=== PATIENT | female | born 1945 | race Caucasian/White ===

== ENCOUNTER → 2021-12-13 11:05 | Outpatient (BNVA) | payer MEDICARE, SELFPAY | PROVIDERS: PCP Nurse Practitioner Family; Visit Provider Nurse Practitioner Family | DX: M79.672 Pain in left foot (principal) | CPT/HCPCS: 73630 ==

== ENCOUNTER → 2023-10-22 13:44 | Outpatient (BNVA) | payer MEDICARE, SELFPAY | PROVIDERS: PCP Nurse Practitioner Family; Visit Provider Nurse Practitioner Family | DX: D48.5 Neoplasm of uncertain behavior of skin (principal); L57.0 Actinic keratosis; L82.1 Other seborrheic keratosis; Z85.828 Personal history of other malignant neoplasm of skin | CPT/HCPCS: 11102; 17000; 99203 ==

== ENCOUNTER 2024-12-10 12:48 | Outpatient (CLI) | payer MEDICARE, SELFPAY ==
--- NOTE | 2024-12-10 12:58 | XR_ITS ---
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 Normal heart size. Bilateral calcified granulomatous disease. There is flattening of the hemidiaphragms. No acute pulmonary parenchymal or pleural abnormality. Minimal degenerative spondylosis in the thoracic spine for age. 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 XR/XR chest 2V* [id number] IMPRESSION: Hyperexpansion with no acute pulmonary parenchymal or pleural abnormality.
== END 2024-12-10 12:49 | disposition home or self-care (01) ==
PROVIDERS: PCP Nurse Practitioner Family
DX: R05.3 Chronic cough (principal); M94.0 Chondrocostal junction syndrome [Tietze]; I77.810 Thoracic aortic ectasia; D71 Functional disorders of polymorphonuclear neutrophils; R93.89 Abnormal findings on diagnostic imaging of other specified body structures; M47.894 Other spondylosis, thoracic region; M19.012 Primary osteoarthritis, left shoulder; M19.011 Primary osteoarthritis, right shoulder
CPT/HCPCS: 71046

== ENCOUNTER 2025-02-24 06:39 | Outpatient (CLI) | payer MEDICARE, SELFPAY ==
--- NOTE | 2025-02-24 07:00 | USCV_ITS ---
Camelia Echeverria Age: 79 Gender: F : 1945 Exam Date: 02/24/2025 07:12 Ordering Phys: Brigida Man Technologist: Flaquito Camargo [place] [facility] [place]: thoracic aorta ectasia BP: 124 / 86 HR: 77 Rhythm: Sinus Technical Quality: Adequate MEASUREMENTS (Male / Female) Normal Values 2D ECHO LV Diastolic Diameter PLAX 3.8 cm 4.2 - 5.9 / 3.9 - 5.3 cm IVS Diastolic Thickness 1.1 cm 0.6 - 1.0 / 0.6 - 0.9 cm IVS Systolic Thickness 1.3 cm LVPW Diastolic Thickness 1.7 cm 0.6 - 1.0 / 0.6 - 0.9 cm LVPW Systolic Thickness 1.7 cm LVOT Diameter 2.0 cm LV Ejection Fraction 2D Teich 65.4 % LV Ejection Fraction MOD 4C 60.6 % LV Ejection Fraction MOD 2C 61.7 % LV Ejection Fraction 2C AL 61.0 % LA Diameter 3.0 cm RA Systolic Volume 4C AL 32.7 ml RA Systolic Volume 4C MOD 31.9 ml LA Sys Volume AL 35.9 cm cubed LA Sys Volume Index AL 21.8 cm cubed/m squared Aorta at Sinotubular Diameter 1.9 cm IVC Diameter 1.3 cm M-MODE LA Ao Ratio MM 1.2 AV Cusp Separation MM 1.7 cm DOPPLER AV Peak Velocity 121.0 cm/s LVOT Peak Velocity 81.0 cm/s AV Area Cont Eq vti 3.1 cm squared AV Area Cont Eq pk 2.2 cm squared MV Peak Velocity 129.0 cm/s MV Area PHT 4.1 cm squared Mitral E to A Ratio 0.6 TV Peak Velocity 236.5 cm/s TR Peak Velocity 279.0 cm/s TR Peak Gradient 31.1 mmHg TR Mean Velocity 218.0 cm/s TR Mean Gradient 20.8 mmHg TR Velocity Time Integral 72.0 cm PV Peak Velocity 93.0 cm/s RV Ejection Time 0.3 s FINDINGS Left Ventricle Normal left ventricular size and systolic function, EF 61%.. Mild left ventricular hypertrophy. No regional wall motion abnormalities. Grade I/IV diastolic dysfunction (abnormal relaxation filling pattern), normal to mildly elevated filling pressures. Right Ventricle The right ventricle is normal in size and function. Right Atrium The right atrium is normal in size. Left Atrium The left atrium is normal in size. Mitral Valve Trace to mild mitral valve regurgitation. Aortic Valve Thickened aortic valve. Trace to mild aortic valve regurgitation. Tricuspid Valve Trace to mild tricuspid valve regurgitation. Estimated pulmonary artery peak systolic pressure 24 mmHg Pulmonic Valve Trace pulmonary valve regurgitation. Pericardium Normal pericardium without effusion. Aorta Normal ascending aorta dimension. IVC The inferior vena cava appears normal. CONCLUSIONS Normal left ventricular size and systolic function, EF 61%.. Mild left ventricular hypertrophy. No regional wall motion abnormalities. Grade I/IV diastolic dysfunction (abnormal relaxation filling pattern), normal to mildly elevated filling pressures. Trace to mild mitral valve regurgitation. Thickened aortic valve. Trace to mild aortic valve regurgitation. Trace to mild tricuspid valve regurgitation. Estimated pulmonary artery peak systolic pressure 24 mmHg. Trace pulmonary valve regurgitation. There is no pericardial effusion. There are no intracardiac masses. No evidence of aneurysm at the level of the aortic root and proximal part of the ascending aorta No similar previous studies are available for comparison Dr Enmanuel Red MD [facility] (Electronically Signed) Final Date: 25 Feb 2025 19:36 S
== END 2025-02-24 06:40 | disposition home or self-care (01) ==
PROVIDERS: PCP Nurse Practitioner Family
DX: I77.810 Thoracic aortic ectasia (principal); Q25.46 Tortuous aortic arch; R93.1 Abnormal findings on diagnostic imaging of heart and coronary circulation; I34.0 Nonrheumatic mitral (valve) insufficiency; I35.1 Nonrheumatic aortic (valve) insufficiency; I35.8 Other nonrheumatic aortic valve disorders; I07.1 Rheumatic tricuspid insufficiency
CPT/HCPCS: 93306

== ENCOUNTER → 2025-04-13 08:14 | Outpatient (BNVA) | payer MEDICARE, SELFPAY | PROVIDERS: PCP Nurse Practitioner Family; Visit Provider Specialist | DX: M65.331 Trigger finger, right middle finger (principal); Z01.818 Encounter for other preprocedural examination | CPT/HCPCS: 36415; 73130; 80053; 81001; 85025; 99204 ==

== ENCOUNTER → 2025-04-20 09:53 | Outpatient (BNVA) | payer MEDICARE, SELFPAY | PROVIDERS: PCP Nurse Practitioner Family; Visit Provider Family Medicine | DX: Z01.818 Encounter for other preprocedural examination (principal) | CPT/HCPCS: 93005 ==

== ENCOUNTER 2025-04-26 06:46 | Day surgery (SDC) | payer MEDICARE, SELFPAY ==
[2025-04-26] VITALS (9 sets, daily range): BP systolic 123–170; BP diastolic 64–92; PULSE 72–85; RESP 14–22; TEMP 36.4–36.9; O2SAT 96–99; BMI 23.1
[2025-04-26] MEDS: acetaminophen 1,000 MG/100 ML PIGGYBACK 400 MG IV (07:32)
--- NOTE | 2025-04-26 09:05 | ANES.PREANE2 ---
Pre-Anesthetic Assessment Height/Weight: Height 1.65 m Weight 63.049 kg Temp Pulse Resp BP Pulse Ox O2 Del Method 98.5 F 85 17 170/92 98 Room Air 04/26/25 07:12 04/26/25 07:12 04/26/25 07:12 04/26/25 07:12 04/26/25 07:12 04/26/25 07:13 Operation Date: 04/26/25 10:05 Proposed Procedures p RIGHT LONG FINGER Trigger Finger Release(Right) - Brittnee Calvert MD Familial anesthetic complications: Noen Was Beta Gabriel taken within 24 hours: N/A Was Clonidine taken within 24 hours: N/A Last intake: Intake Last Liquid Date 04/25/25 Last Liquid Time 20:00 Last Solid Date 04/25/25 Last Solid Time 18:00 Social No alcohol and No tobacco Exam alert, oriented x 3, clear to auscultation bilaterally and regular rate & rhythm Airway Mallampati: Class I Dentition: false Pulmonary allergies - hoping to lay somewhat upright during procedure to help with nasal drainage Metabolic Thyroid Disease [facility] [place] Fibromyalgia Anesthetic Plan ASA status: 2 Anesthesia: General Risk of > 500 ml blood loss (7ml/kg in children): No Medications/Allergies Home Medications ?Medication ?Instructions ?Recorded ?Confirmed ?Last Taken ?Type celecoxib 400 mg capsule (Celebrex) 400 mg PO DAILY 04/13/25 04/26/25 04/14/25 History levothyroxine 50 mcg capsule 50 mcg PO DAILY 04/13/25 04/26/25 04/25/25 03:00 History budesonide 160 mcg-glycopyr 9 2 inh inhalation BID 04/20/25 04/26/25 Unknown History mcg-formot 4.8 mcg/actuation HFA inhaler (Breztri Aerosphere) Allergies Allergy/AdvReac Type Severity Reaction Status Date / Time sulfur dioxide Allergy Intermediate ALGY-Hives Verified 04/26/25 07:07 Current Medications Generic Name Dose Route Start Last Admin Trade Name Freq PRN Reason Stop Dose Admin Sodium Chloride 1,000 mls @ 30 mls/hr 04/26/25 07:00 04/26/25 07:32 Sodium Chloride 0.9% IV 04/27/25 06:59 30 mls/hr .Q24H SUNNY Administration PFSH Anesthesia Social History Smoking and tobacco/nicotine status: never used tobacco/nicotine Data Anesthesia Cardiac Studies: Echocardiogram 02/24/25
--- NOTE | 2025-04-26 10:16 | P.HPUD_ITS ---
Surgery/Procedure H&P Update DATE OF PROCEDURE: April 26, 2025 DATE H&P PERFORMED: 04/13/25 H&P UPDATE INFORMATION: I have reviewed H&P completed within last 30 days, I have examined patient prior to procedure, No changes to prior documentation, H&P is in [facility] EMR on date indicated and Risks and benefits of the procedure reviewed PLANNED PROCEDURE: Operation Date: 04/26/25 10:05 Proposed Procedures p RIGHT LONG FINGER Trigger Finger Release(Right) - Brittnee Calvert MD Related Problem List Diagnoses 1. Trigger finger, right middle finger:
[2025-04-26] MEDS: ceFAZolin 2,000 mg SDV 2000 MG IVP (10:41)
[2025-04-26] MEDS: BUPivacaine 0.5% INJ 30 mL XX (11:01)
--- NOTE | 2025-04-26 11:37 | P.OP_ITS ---
Operative Report Date of procedure: April 26, 2025 Pre-op diagnosis: Right long finger triggering Post-op diagnosis: Right long finger triggering Post-op findings: Significant inflammation around the flexor tendons of the long finger flexor tendons, very tight A1 blanca Procedure done: Right long finger trigger finger release Implants: None Specimens removed/disposition: None Pathology: None Surgeon: Brittnee Calvert MD News Commentator: None Anesthesia: General (Per LMA, ASA 3) Estimated blood loss (mL): 1 Tourniquet time (min): 14 (250 mmHg) IV fluids (mL): 500 Urine output (mL): 0 (No Munguia) Complications: None Findings: Significant inflammation of the flexor tendons of the long finger of the right hand. Condition: stable Disposition: PACU Brief History: This 79-year-old woman presented to the office complaining of severe pain in the right long finger with symptoms of triggering. It was constant and causing her finger to lock up repeatedly. Patient states it had been ongoing for at least a year. After discussion, she wished to proceed with trigger finger release. Risks and complications were discussed with her. Consents were signed preoperatively in the office and questions were answered. She also saw Dr. Jauregui for preoperative optimization. She was seen the morning of surgery and given further opportunity to have questions answered. Procedure: Patient was brought to the operating theater. She was placed on the operating room table. A general anesthesia per LMA, ASA 3, was administered without difficulty. Patient tolerated it well. 2 g of Ancef was administered uneventfully. A tourniquet was placed high on the arm, the arm was exsanguinated, and the tourniquet was elevated to 203 mmHg. Tourniquet time was 14 minutes. Surgical pause was performed prior to commencement of the surgical procedure. At the time of the surgical pause we identified the site and side of surgery. We also identified the patient's identity and appropriate administration of IV antibiotics. Following the surgical pause, an incision was made along the distal palmar crease beneath the long finger. Dissection continued through the skin to the subcutaneous tissues using a scalpel. Blunt dissection was then utilized to spread soft tissues and allow access to the A1 blanca. It was then incised longitudinally and sharply using a knife. This was accomplished without difficulty and atraumatically. Once the A1 blanca was released, tendons were brought up out of the wound and evaluated. There were no gross masses on the tendons. Tendons were returned to normal position. We then irrigated the wound and subsequently closed it with 3-0 nylon with an interrupted mattress type suture. Following closure of the wound, the wound was injected with local anesthetic into the subcutaneous tissues. Sterile dressing was then placed consisting of OpSite, fluffed fluffs, sterile soft roll, and an Edilberto wrap. The patient was returned to recovery in satisfactory condition. She will be discharged home to follow-up with me in the office. There were no complications and no specimens. Related Problem List Diagnoses 1. Trigger finger, right middle finger:
--- NOTE | 2025-04-26 12:40 | ANE.PACU2 ---
Inpatient post-anesthesia follow up: Vital signs: Temperature 97.8 F Pulse Rate 76 Respiratory Rate 17 Blood Pressure 160/80 Pulse Oximetry 97 Oxygen Delivery Me thod Room Air Oxygen Flow Rate Fraction of Inspir ed Oxygen
== END 2025-04-26 12:49 | disposition home or self-care (01) ==
PROVIDERS: PCP Nurse Practitioner Family; Visit Provider Specialist
PROC: (CPT 26055; principal; 2025-04-26 10:05)
DX: M65.331 Trigger finger, right middle finger (principal); M79.7 Fibromyalgia; E07.9 Disorder of thyroid, unspecified
CPT/HCPCS: 26055; J0131; J0690; J2405; J2704; J3010; J3490; J7030; J9999

== ENCOUNTER → 2025-05-09 13:51 | Outpatient (BNVA) | payer MEDICARE, SELFPAY | PROVIDERS: PCP Nurse Practitioner Family; Visit Provider Nurse Practitioner | DX: Z98.890 Other specified postprocedural states (principal) | CPT/HCPCS: 99024 ==

== ENCOUNTER 2025-06-14 15:24 | Outpatient (CLI) | payer MEDICARE, SELFPAY ==
--- NOTE | 2025-06-14 15:29 | CT_ITS ---
WS: [id number] CT HEAD TECHNIQUE: Noncontrast CT of the head obtained from the skullbase to the vertex. CLINICAL INFORMATION: HEADACHE COMPARISON: None. DLP: 1029.[address] scans at [facility] use at least one of these dose optimization techniques: automated exposure control; mA and/or kV adjustment per patient size (includes targeted exams where dose is matched to clinical indication); or iterative reconstruction. FINDINGS: No evidence of intracranial hemorrhage or mass effect. Ventricular system and basal cisterns are patent. Moderate small vessel changes with moderate parenchymal volume loss. No extra-axial fluid collections. No evidence of mass or mass effect. Vascular calcification. Paranasal sinuses and mastoid air cells are well aerated. .Normal visualized soft tissues. CT/CT head wo con* [id number] IMPRESSION: 1. No evidence of intracranial hemorrhage or mass effect. 2. Moderate small vessel changes. Moderate parenchymal volume loss. 3. Vascular calcification. 4. No acute intracranial findings.
== END 2025-06-14 15:25 | disposition home or self-care (01) ==
LOC: RAD 15:24
PROVIDERS: PCP Nurse Practitioner Family; Visit Provider Nurse Practitioner Family
DX: R51.9 Headache, unspecified (principal)
CPT/HCPCS: 70450